=== PATIENT | male | born 1970 | race Caucasian/White ===

== ENCOUNTER 2018-06-14 09:32 | Emergency (ER) | payer OTHER ==
[~2018-06-14] VITALS: Ht 167.6 cm; Wt 113.0 kg
--- NOTE | 2018-06-14 09:38 | ERD ---
ER Documentation Chief Complaint Chief Complaint Altered mental status HPI 48-year-old male history of diabetes, hypertension and hyperlipidemia presents the ED via rescue ambulance for evaluation of altered mental status. History is obtained from transferring paramedics and the patient's . Patient last seen normal yesterday at 2300 but was complaining of headache. Throughout the night he continued to complain of generalized headache and had several episodes of nonbloody, nonbilious emesis. This morning reports the patient was not answering questions or responding normally, his blood pressure was 200 mmHg systolic she administered his usual medications that he did not improve and 911 was activated. ROS Unobtainable due to the patient's clinical condition Medications Home Meds Reported Medications Atorvastatin* (Atorvastatin*) 40 Mg Tablet, 40 MG PO NEEDED, #30 TAB 06/14/18 Lisinopril* (Lisinopril*) 10 Mg Tablet, 20 MG PO NEEDED, #30 TAB 06/14/18 Metformin Hcl* (Metformin Hcl*) 500 Mg Tablet, 500 MG PO NEEDED, #60 TAB 06/14/18 Allergies Allergies: Coded Allergies: No Known Allergy (Unverified , 06/14/18) PMhx/Soc Reviewed in chart. As per HPI. History of Surgery: No Anesthesia Reaction: No Hx Neurological Disorder: No Hx Respiratory Disorders: No Hx Cardiac Disorders: Yes (Hypertension) Hx Psychiatric Problems: No Hx Miscellaneous Medical Probl: Yes (Diabetes mellitus type 2) Hx Alcohol Use: No Hx Substance Use: No Hx Tobacco Use: Yes Smoking Status: Current every day smoker FmHx Unobtainable due to the patient's clinical condition Physical Exam Vitals Vital Signs Date Temp Pulse Resp B/P (MAP) Pulse Ox O2 O2 Flow FiO2 Time Delivery Rate 06/14/18 104 20 152/66 97 Nasal 2.0 11:21 (94) Cannula 06/14/18 100 18 150/68 97 Nasal 2.0 10:54 (95) Cannula 06/14/18 92 18 143/72 96 Nasal 2.0 10:30 (95) Cannula 06/14/18 83 18 179/103 98 Nasal 2.0 10:10 (128) Cannula 06/14/18 Nasal 2 10:07 Cannula 06/14/18 97.8 55 18 202/116 97 09:39 (144) Physical Exam Const: Alert, severe distress Head: Atraumatic Eyes: Pupils equal reactive to light. No gaze preference or neglect. ENT: Normal External Ears, Nose and Mouth. Neck: Nontender. Carotids are 2+ bilaterally without bruits. Resp: Breath sounds are equal and clear to auscultation bilaterally Cardio: Regular rate and rhythm, no murmurs Abd: Soft, obese, non tender, non distended. Normal bowel sounds Skin: No petechiae or rashes Back: No midline or flank tenderness Ext: No cyanosis, or edema Neur: GCS: 4/5/4. Awake and alert but does not follow commands. Moves all extremities spontaneously. Plantar reflex upgoing on the left. Physical examination is truncated due to the constraints imposed by the patie nt's clinical condition Result Diagram: 06/14/18 1002 06/14/18 1002 Results 24 hrs Laboratory Tests Test 06/14/18 09:50 06/14/18 10:02 06/14/18 10:15 Bedside Glucose 288 mg/dL White Blood Count 12.3 10^3/ul Red Blood Count 5.37 10^6/ul Hemoglobin 16.1 g/dl Hematocrit 47.8 % Mean Corpuscular Volume 89.0 fl Mean Corpuscular Hemoglobin 30.0 pg Mean Corpuscular 33.7 g/dl Hemoglobin Concent Red Cell Distribution Width 11.9 % Platelet Count 140 10^3/UL Mean Platelet Volume 10.7 fl Immature Granulocytes % 0.600 % Neutrophils % 84.4 % Lymphocytes % 10.9 % Monocytes % 3.4 % Eosinophils % 0.4 % Basophils % 0.3 % Nucleated Red Blood Cells % 0.0 /100WBC Immature Granulocytes # 0.070 10^3/ul Neutrophils # 10.3 10^3/ul Lymphocytes # 1.3 10^3/ul Monocytes # 0.4 10^3/ul Eosinophils # 0.1 10^3/ul Basophils # 0.0 10^3/ul Nucleated Red Blood Cells # 0.0 10^3/ul Prothrombin Time 11.7 Sec Prothrombin Time Ratio 0.9 INR International 0.85 Normalized Ratio Activated Partial Thromboplast 23.1 Sec Time Sodium Level 137 mmol/L Potassium Level 4.4 mmol/L Chloride Level 100 mmol/L Carbon Dioxide Level 26 mmol/L Anion Gap 11 Blood Urea Nitrogen 11 mg/dl Creatinine 0.72 mg/dl Est Glomerular Filtrat > 60 mL/min Rate mL/min Glucose Level 290 mg/dl Hemoglobin A1c 9.1 % Calcium Level 9.3 mg/dl Total Bilirubin 0.2 mg/dl Direct Bilirubin 0.00 mg/dl Indirect Bilirubin 0.2 mg/dl Aspartate Amino Transf (AST/SGOT) 26 IU/L Alanine 21 IU/L Aminotransferase (ALT/SGPT) Alkaline Phosphatase 98 IU/L Creatine Kinase 118 IU/L Creatine Kinase Index 1.5 Creatinine Kinase MB (Mass) 1.79 ng/ml Troponin I < 0.012 ng/ml Total Protein 7.7 g/dl Albumin 4.5 g/dl Globulin 3.20 g/dl Albumin/Globulin Ratio 1.40 Triglycerides Level 295 mg/dl Cholesterol Level 169 mg/dl LDL Cholesterol, Calculated 81 mg/dl HDL Cholesterol 29 mg/dl Cholesterol/HDL Ratio 5.8 RATIO Ethyl Alcohol Level < 10.0 mg/dl Urine Color STRAW Urine Clarity CLEAR Urine pH 8.0 Urine Specific Grady 1.017 Urine Ketones TRACE mg/dL Urine Nitrite NEGATIVE mg/dL Urine Bilirubin NEGATIVE mg/dL Urine Urobilinogen NEGATIVE mg/dL Urine Leukocyte Esterase NEGATIVE Jourdan/ul Urine Microscopic RBC 0 /HPF Urine Microscopic WBC 0 /HPF Urine Hemoglobin NEGATIVE mg/dL Urine Glucose 3+ mg/dL Urine Total Protein 1+ mg/dl Urine Opiates Screen Negative Urine Barbiturates Negative Urine Amphetamines Screen Negative Urine Benzodiazepines Screen Negative Urine Cocaine Screen Negative Urine Cannabinoids Negative Current Medications Medications Dose Sig/Danni Start Time Status Last (Trade) Ordered Route PRN Stop Time Admin Dose Reason Admin 100 ml @ ONCE ONCE 06/14/18 DC 06/14/18 Levetiracetam 400 mls/hr IVPB 10:00 06/14/18 10:00 10:14 Nicardipine 200 ml @ ONCE STAT 06/14/18 DC 06/14/18 HCl 50 mls/hr IV 09:54 06/14/18 10:00 11:45 Nimodipine 60 mg ONCE ONCE 06/14/18 DC (Nimotop) PO 10:00 06/14/18 10:01 Ondansetron 4 mg ONCE STAT 06/14/18 DC 06/14/18 HCl (Zofran IV 10:00 06/14/18 10:07 Inj) 10:01 IV Flush 10 ml STK-MED 06/14/18 DC (NS 10 ml) ONCE .ROUTE 10:06 2/2/19 10:07 Sodium 100 ml @ ud STK-MED 06/14/18 DC Chloride ONCE .ROUTE 10:06 06/14/18 10:07 Iodixanol 100 ml STK-MED 06/14/18 DC (Visipaque ONCE .ROUTE 10:06 06/14/18 Locm) 10:07 Morphine 4 mg ONCE STAT 06/14/18 DC 06/14/18 Sulfate IV 10:53 06/14/18 10:57 (morphine) 10:54 Morphine 4 mg STK-MED 06/14/18 DC Sulfate ONCE .ROUTE 10:54 06/14/18 (morphine) 10:55 Labetalol 10 mg ONCE ONCE 06/14/18 DC HCl IV 11:30 06/14/18 (Labetalol) 11:31 Nicardipine 200 ml @ ONCE STAT 06/14/18 HCl 50 mls/hr IV 11:41 06/14/18 15:40 Procedures/MDM DOCUMENTS REVIEWED: ED nurse, EMS report. No prior record. LAB INTERPRETATION: CBC reveals leukocytosis but no anemia or thrombocytopenia. Chemistry significant for mild hyperglycemia but no electrolyte abnormalities, acidosis or renal insufficiency. Troponin is negative. EKG: Time: 1002. Sinus rhythm. Ventricular rate 77. Normal OR QRS. No ectopy. Q waves in leads III and aVF. No acute ST segment elevation or depression. My Interpretation IMAGING: PROCEDURE: Chest x-ray CLINICAL INDICATION: Code stroke. TECHNIQUE: VIEWS: 1 COMPARISON: None. FINDINGS: SUPPORT DEVICES: None CARDIAC AND MEDIASTINAL SILHOUETTES: Enlarged possibly magnified . LUNGS AND PLEURAL SPACE: Diminished lung volumes with lower lobe pulmonary vessel crowding. No infiltrates, consolidation, pulmonary edema or pleural effusion. PNEUMOTHORAX: None. OSSEOUS STRUCTURES: Unremarkable. IMPRESSION: 1. No acute pulmonary disease. 2. Diminished lung volumes with lower lobe vessel crowding. 3. Cardiomegaly possibly secondary to magnification. RPTAT: HRSR Physician Federica Date Time Electronically viewed and signed by Physician Federica on 06/14/2018 10:07 PROCEDURE: CT Brain without contrast. CLINICAL INDICATION: Stroke TECHNIQUE: A CT of the brain was performed on a multidetector CT scanner utilizing axial imaging from the skull base through the vertex without IV contrast. Images were reviewed on a PACS workstation. The CTDIvol is 38 mGy and the DLP is 634 mGycm. DICOM images are available. One or more of the following dose reduction techniques were utilized: 1.) Automated exposure control 2.) Adjustment of the mA +/- kV according to patient's size 3.) Use of iterative reconstruction technique. COMPARISON: None FINDINGS: Noted is a moderate volume of subarachnoid hemorrhage present. There is blood throughout the suprasellar cistern as well as in the cistern of the left middle cerebral artery, left sylvian fissure and along the left lateral convexity. Small volume of hemorrhage is seen along the anterior interhemispheric fissure and there is trace blood noted in the anterior superior third ventricle. Small volume of blood is seen in the left rogerio mesencephalic cistern and there is hemorrhage within the prepontine cistern. Trace blood is noted within the right sylvian fissure. Findings likely represent evidence of either a ruptured left- sided aneurysm or possibly an arterial venous malformation. There is underlying mild diffuse cerebral volume loss with sulcal and ventricular dilatation. No midline shift is present. The ventricles are of normal configuration. No intra- axial masses or regions of abnormal attenuation are seen and there is no parenchymal hemorrhage. There is normal aeration in the visualized paranasal sinuses. IMPRESSION: Moderate volume of acute subarachnoid hemorrhage, left greater than right. Question ruptured aneurysm versus arteriovenous malformation. Consider CT angiogram for further evaluation. Findings were telephoned to the referring physician at 09:45 a.m. on date of exam. .Homero De Jesus MD, MD Date Time Electronically viewed and signed by .Homero De Jesus MD, on 06/14/2018 09:53 PROCEDURE: CT Angiogram of the head and neck with intravenous contrast CLINICAL INDICATION: Code stroke. Acute subarachnoid hemorrhage. COMPARISON: CT brain 06/14/2018 TECHNIQUE: CT angiogram of the head and neck was obtained. Sagittal and coronal reformations and maximum intensity projection reconstructions were provided. Images were obtained before and after the uneventful administration of 100 mL Visipaque 320 intravenous contrast. Direct measurements of vessel diameters was made in reference to measurements of the distal internal carotid artery diame ter. 3-D post processing was provided. DOSE: The estimated administered radiation dose was CTDI vol = 36.30, 17.59 mGy. DLP = 750.70 mGy-cm. One or more of the following dose reduction techniques were used: automated exposure control, adjustment of the mA and/or kV according to patient size, or use of iterative reconstruction technique. DICOM images are available. FINDINGS: BRAIN Parenchyma: Large acute subarachnoid hemorrhage involving the left greater than right Sylvian cisterns, the bilateral, left greater than right basal cisterns, the suprasellar, perimesencephallic quadrigeminal, bilateral cerebellopontine angle, prepontine, premedullary cisterns, and foramen magnum. The guido-white matter junctions are preserved. There is mild dilatation of the bilateral temporal horns consistent with early hydrocephalus. 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 Ventricles: Mild dilatation of the temporal horns consistent with early hydrocephalus. Paranasal sinuses: Clear. Mastoid air cells: Clear. Bones: Normal Additional comment: None. CEREBRAL ANGIOGRAM Aneurysm: There is a 3 x 3 mm saccular aneurysm at the left middle cerebral artery bifurcation oriented laterally. Findings are seen on coronal and sagittal images 51 and 88 respectively. No evidence of a second aneurysm Anterior circulation: Internal carotid arteries: No flow-limiting stenosis. Anterior cerebral arteries: No flow-limiting stenosis. Middle cerebral arteries: No flow-limiting stenosis. Posterior cerebral arteries: No flow-limiting stenosis. Anterior communicating artery: Present No flow-limiting stenosis. Posterior communicating arteries: Not seen. Posterior circulation: Basilar artery: No flow-limiting stenosis. V3/V4 vertebral arteries: No flow-limiting stenosis. Dural venous sinuses: Patent. NECK ANGIOGRAM Aorta: No flow-limiting stenosis. Right common carotid artery: No flow-limiting stenosis. Right internal carotid artery: No flow-limiting stenosis. Right external carotid artery: No flow-limiting stenosis. Left common carotid artery: No flow-limiting stenosis. Left internal carotid artery: No flow-limiting stenosis. Left external carotid artery: No flow-limiting stenosis. V1/V2 vertebral arteries: No flow-limiting stenosis. Vertebral artery dominance: Left. IMPRESSION: 1. 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 2. 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 3. Mild dilatation of the temporal horns consistent with hydrocephalus 4. 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 5. No evidence of a significant stenosis of the intra or extra cranial carotid arteries by NASCET criteria. Velocity measurements with angiographic measurements, velocity criteria are extrapolated from diameter data as defined by the Society of Radiologists in Ultrasound Consensus Conference Radiology 2003; 229;340-346. This study does indirectly reference the measurement of the distal ICA diameter as the denominator for stenosis measurement." Critical results: Results were called to Matthieu Thompson at 06/14/2018 10:41:00 AM RPTAT: HRSR Physician Federica Date Time Electronically viewed and signed by Sondra Pettit Physician on 06/14/2018 10:52 RR/ PROCEDURES: Endotracheal Intubation by me: Pre assessment performed. See preceding note for details. Pre-oxygenation performed with 100% oxygen RSI: Performed w/o complication or hypoxic events. Medications as ordered. Blade: #4 ET Tube: 7.5 cm Depth: 26 cm at the lip Intubation confirmed by colorimetric CO2, equal breath sounds, quiet over the stomach. Chest X-ray 1V Interpreted by me: cm above the giovanny ET tube. Normal soft tissue, No pneumothorax. CRITICAL CARE TIME: Due to the high probability of sudden clinically significant neurologic, cardiovascular, respiratory and hemodynamic deterioration, this patient with hypertensive emergency and altered mental status secondary to an acute subarachnoid hemorrhage required multiple, frequent reevaluations of vital signs and response to therapy. Additional critical care time was spent in obtaining supplemental history from EMS and patient's family, interpretation of relevant clinical data as well as consultation with neurosurgery and arranging for transfer and ongoing care with [facility]. TOTAL CRITICAL CARE TIME: 40 minutes not including other separately reportable procedures. MEDICAL DECISION MAKIN-year-old male history of diabetes, hypertension and hyperlipidemia, presents the ED via rescue ambulance for evaluation of altered mental status. Code stroke protocol initiated on arrival. Noncontrast CT of the brain reveals acute subarachnoid hemorrhage left greater than right. CT angiogram reveals a left MCA bifurcation 3 x 3 mm saccular aneurysm. Aggressive blood pressure to maintain the systolic blood pressure less than 140 mmHg with Cardene drip. NG tube will be needed for nimodipine. Patient requires transfer for higher level of care. Risks and benefits of transfer were explained and understood by the who agrees to transfer. Patient intubated for airway protection. Transfer to [facility], Dr. Bonner. accepting. CALLS/CONSULTS: Time: 09:58. Dr. Walker. CALLS/CONSULTS: Time: 10:17. [place]anger. Called CALLS/CONSULTS: Time: 11:23. [facility] . Accepted for transfer. Counseled family regarding diagnosis, diagnostic results and need for transfer to which they are in agreement. I informed the [facility] of the 's request for consultation with the neurosurgeon Dr Wenceslao Tadeo. Departure Diagnosis: Primary Impression: Altered mental status Altered mental status type: unspecified Qualified Codes: R41.82 - Altered mental status, unspecified Additional Impressions: Acute spontaneous subarachnoid intracranial hemorrhage Hypertensive emergency Condition: Critical MATTHIEU MAE MD Jun 14, 2018 09:38
[2018-06-14 09:39] VITALS: Ht 167.6 cm; Wt 113.0 kg
[2018-06-14] MEDS ORDERED: niCARdipine-NS 0.1MG/ML DRIP 200 ML IV STA ×2 (09:54→11:41)
[2018-06-14] MEDS ORDERED: ONDANSETRON 4 MG INJ IV STA (10:00)
[2018-06-14] MEDS ORDERED: LEVETIRACETAM 1000 MG (PMX) 100 ML IVPB ONE (10:00)
[2018-06-14] MEDS ORDERED: SOD CHLORIDE 0.9% 100 ML ONE (10:06)
[2018-06-14] MEDS ORDERED: IODIXANOL LOCM 100 ML BTL ONE (10:06)
[2018-06-14] MEDS ORDERED: METF500T24 PO (10:24)
[2018-06-14] MEDS ORDERED: LISI10TA2 PO (10:25)
[2018-06-14] MEDS ORDERED: ATOR40TA68 PO (10:25)
--- NOTE | 2018-06-14 10:25 | NUR ---
Procedure Ordered: CTA CEREBRAL NECK ANGIO Reason for Exam Today: CODE STROKE, POSITIVE BLEED ON CT BRAIN Previous Exams: Allergies: Current Medications Taken: Glucophage ( ) Metformin ( ) Previous reaction to contrast media: Yes ( ) No ( X) : Yes ( ) No ( X) Asthma: Yes ( ) No ( X) Diabetes: Yes (X ) No ( ) Myeloma: Yes ( ) No (X ) Heart Disease: Yes ( X) No ( ) Cardiac Disease: Yes (X ) No ( ) Kidney Disease: Yes ( ) No ( X) Vascular Disease: Yes ( ) No ( X) Patient Teaching done: Yes X( ) No ( ) Preschool Assistant Teacher Used: Yes ( ) No ( X) Name of Preschool Assistant Teacher: Language Used: As part of the test requested by your doctor, contrast media may be injected into your vein while the x-rays are being taken. Occasionally, reactions from IV contrast may occur. The physician and staff of this hospital are trained to treat these reactions. Select the type of Contrast that will be given to patient: Omnipaque 300 ( ) Omnipaque 350 ( ) Visipaque 320 (X ) Cystografin ( ) Gastrographin ( ) Redi-cat ( ) Volumen ( ) Amount of contrast to be given: 100CC IV (X) PO ( ) Date given: 06/14/18 NO LABS AT TIME OF SCAN. OK PER ER MD MAE Lab Values: BUN: Creatinine: eGFR: Reason why contrast cannot be given: Location of patient pre-procedure: ER BED 14 Location of patient post procedure:ER BED 14 Patient tolerated exam well and returned to unit.
[2018-06-14] MEDS ORDERED: morphine 4 MG/ML VIAL IV STA (10:53)
[2018-06-14] MEDS ORDERED: morphine 4 MG/ML VIAL ONE (10:54)
[2018-06-14] MEDS ORDERED: LABETALOL HCL 20MG INJ IV ONE (11:30)
[2018-06-14] MEDS ORDERED: PROPOFOL 100 ML ONE (12:01)
[2018-06-14 12:25] VITALS: BP 131/83; PULSE 83; RESP 20
[2018-06-14] MEDS ORDERED: PROPOFOL 100 ML IV ONE (12:30)
== END 2018-06-14 12:55 | disposition short-term general hospital (02) ==
LOC: E/R 09:32
DX: I60.9 Nontraumatic subarachnoid hemorrhage, unspecified (principal); I16.1 Hypertensive emergency; I10 Essential (primary) hypertension; E11.9 Type 2 diabetes mellitus without complications; F17.210 Nicotine dependence, cigarettes, uncomplicated; Z79.84 Long term (current) use of oral hypoglycemic drugs
CPT/HCPCS: 31500; 36415; 51702; 70450; 70496; 70498; 71045; 80053; 80061; 80307; 81001; 82550; 82553; 82962; 83036; 84484; 85025; 85610; 85730; 93005; 96374; 96375; 99291; J1953; J2270; J2405; Q9967